=== PATIENT | female | born 1945 | race Caucasian/White ===

== ENCOUNTER 2017-09-05 13:37 | Emergency (ER) | payer MEDICARE, OTHER ==
[~2017-09-05] VITALS: Ht 157.5 cm; Wt 86.6 kg
[~2017-09-05 13:37] MED LIST: ASPIR 8181 MG PO; ATORVASTATIN CA40 MG PO; LEVOTHYROXIN0.075 MG PO; MELATONIN3 MG PO; NAPROSYN500 MG PO; NORVASC5 MG PO; TRAMADOL 50 MG50 MG PO; VITAMIN D3400 UNIT PO; ZETIA10 MG PO
[2017-09-05] MEDS ORDERED: ZETIA10 MG PO (13:56)
[2017-09-05] MEDS ORDERED: HYDRALAZINE 2525 MG PO (13:57)
[2017-09-05 14:30] LABS: INFLUENZA A ANTIGEN None Detected (None Detect); INFLUENZA B ANTIGEN None Detected (None Detect)
[2017-09-05 14:41] LABS: NUCLEATED RBCS 0 /100WBC
[2017-09-05 14:43] LABS: HEMATOCRIT 29.3 % (37.0-47.0); MCH 28.7 pg (26.0-34.0); MCV 84.4 fL (80.0-100.0); MPV 6.6 fl. (7.2-11.1); PLATELET COUNT* 289 thou/uL (150-400); RBC 3.47 mil/uL (4.20-5.00); WBC 11.3 thou/uL (4.0-11.0)
[2017-09-05 14:58] LABS: ALBUMIN 2.8 g/dL (3.4-5.0); CALCIUM 8.2 mg/dL (8.5-10.1); CREATININE 1.5 mg/dL (0.6-1.3); POTASSIUM 3.6 mmol/L (3.5-5.1); TOTAL BILIRUBIN 0.7 mg/dL (<0.1-1.0); TOTAL PROTEIN 7.7 g/dL (6.4-8.2)
[2017-09-05 15:09] LABS: ABSOLUTE LYMPHOCYTES 1.1 thou/uL (0.8-5.3); ABSOLUTE MONOCYTES 0.6 thou/uL (0.0-1.2); ABSOLUTE NEUTROPHILS 9.6 thou/uL (1.6-8.1); HYPOCHROMASIA 1+; PLATELET ESTIMATE ADEQUATE
[2017-09-05 16:40] LABS: URINE BILIRUBIN NEGATIVE (Negative); URINE BLOOD 2+ (Negative); URINE CLARITY SL CLOUDY; URINE COLOR YELLOW; URINE GLUCOSE-RANDOM NEGATIVE (Negative); URINE KETONES NEGATIVE (Negative); URINE LEUKOCYTES-REFLEX 3+ (Negative); URINE NITRITE-REFLEX NEGATIVE (Negative); URINE PROTEIN 1+ (Negative); URINE UROBILINOGEN 0.2 E.U./dl (0.2-1.0)
[2017-09-05 16:52] LABS: URINE WBC-REFLEX >25 Many /HPF (0-5)
[2017-09-05 16:53] LABS: BACTERIA-REFLEX >30 Many /HPF (None Seen); HYALINE CASTS 0-3 Few /LPF (None Seen); SQUAMOUS 4-10 Moderate /LPF (0-3)
[2017-09-05 16:56] LABS: CRYSTALS None Seen /LPF (None Seen); MUCUS None Seen strn/LPF (None Seen); URINE RBC 0-2 Rare /HPF (0-2); WBC CLUMPS Few (None Seen)
[2017-09-05] MEDS ORDERED: CIPROFLOXACIN500 M1 PO (17:01)
[2017-09-05] MEDS ORDERED: PHENERGAN 25 MG25 M1 PO (17:01)
[2017-09-05 17:23] VITALS: BP 113/50
== END 2017-09-05 17:24 | disposition home or self-care (01) ==
LOC: M.ERS 13:37
PROVIDERS: Emergency Medicine
DX: N39.0 Urinary tract infection, site not specified (principal); Z90.710 Acquired absence of both cervix and uterus; Z90.49 Acquired absence of other specified parts of digestive tract